=== PATIENT | male | born 1985 | race Two or more races ===

== ENCOUNTER 2018-04-08 21:41 | Emergency (ER) | payer SELFPAY ==
[~2018-04-08] VITALS: Ht 177.8 cm; Wt 77.0 kg
[2018-04-08 23:40] LABS: EOSINOPHILS % 1.1 % (0.0-5.0); HEMATOCRIT. 40.5 % (42.0-52.0); HEMOGLOBIN. 13.5 g/dL (14.0-18.0); LYMPHOCYTES % 13.3 % (20.0-50.0); MEAN CORPUSCULAR HEMOGLOBIN 32.4 pg (28.0-32.0); MEAN PLATELET VOLUME 8.7 fl (7.4-10.4); MONOCYTES % 10.2 % (2.0-8.0); NEUTROPHILS % 75.4 % (40.0-76.0); PLATELET 174 x1000/uL (130-400); RED BLOOD CELL COUNT 4.18 mill/uL (4.7-6.1); RED CELL DISTRIBUTION WIDTH 11.4 % (11.6-14.6)
[2018-04-08 23:43] VITALS: BP 108/67
[2018-04-08 23:48] LABS: CHLORIDE 101 mEq/L (98-107)
[2018-04-08 23:57] LABS: ETHANOL BLOOD < 10 mg/dL
== END 2018-04-09 00:17 | disposition home or self-care (01) ==
LOC: EDBD 21:41 → ER 21:41
DX: T40.7X1A Poisoning by cannabis (derivatives), accidental (unintentional), initial encounter (principal); Y92.9 Unspecified place or not applicable; Z78.1 Physical restraint status
CPT/HCPCS: 36415; 80053; 85025; 99284; G0482